=== PATIENT | male | born 1990 | race African-American/Black ===

== ENCOUNTER 2017-06-16 23:17 | Emergency (ER) | payer SELFPAY ==
--- NOTE | 2017-06-16 23:56 | RAD ---
RIGHT FOOT THREE VIEW 06/16/17 HISTORY: Pain. COMPARISON: None. FINDINGS: There is an accessory ossicle of the midfoot at the level of the talonavicular joint. No acute fract ure or malalignment. Lisfranc interval is maintained. There is old fracture of the medial hallux sesamoid. IMPRESSION: 1. No acute fracture or malalignment. 2. Mild hallux valgus deformity. 3. Old fracture medial hallux sesamoid. POS: [facility]
[2017-06-16] MEDS ORDERED: traMADol HCl 50 MG TAB ONE (23:58)
[2017-06-17 00:19] LABS: #Basophils 0.1 thou/uL (0.0-0.2); #Eosinphils 0.1 thou/uL (0.0-0.7); #Lymphocytes 3.3 thou/uL (1.20-3.40); #Monocytes 1.3 thou/uL (0.11-0.59); #Neutrophils 9.2 thou/uL (1.40-6.50); %Basophils 0.8 % (0.0-1.0); %Eosinophils 0.8 % (0.0-10.0); %Lymphocytes 23.3 % (21.0-51.0); %Monocytes 9.5 % (0.0-10.0); Hematocrit 45.5 % (42.0-52.0); Mean Platelet Volume 7.2 fL (7.4-10.4); Red Blood Cell (RBC) Count 5.06 mill/uL (4.70-6.10)
[2017-06-17 00:38] LABS: Anion Gap 16 mmol/L (10-20); BUN (Urea Nitrogen) 11 mg/dL (8.9-20.6); Calc. Creatinine Clearance 0 mL/min (70-130); Calcium 9.8 mg/dL (7.8-10.44); Carbon Dioxide 25 mmol/L (22-29); Chloride 101 mmol/L (98-107); Estimated GFR-MDRD Greater than 90; Uric Acid 4.9 mg/dL (3.5-7.2)
[2017-06-17] MEDS ORDERED: cefTRIAXone\\ROCEPHIN 250 MG VIAL ONE (01:14)
[2017-06-17] MEDS ORDERED: Lidocaine 1% PF 5 ML VIAL ONE (01:14)
== END 2017-06-17 01:32 | disposition home or self-care (01) ==
LOC: ERS 23:17
DX: M79.671 Pain in right foot (principal); J42 Unspecified chronic bronchitis; F17.210 Nicotine dependence, cigarettes, uncomplicated
CPT/HCPCS: 36415; 80048; 84550; 85025; 85652; 86140; 96372; J0696; J2001